=== PATIENT | male | born 1965 ===

== ENCOUNTER 2024-01-20 04:17 | Day surgery (SDC) | payer OTHER ==
[2024-01-17 12:44] VITALS: BMI 26.2
[2024-01-20] MEDS ORDERED: PROPOFOL 20 ML ONE ×2 (09:03→12:53)
[2024-01-20] MEDS ORDERED: MIDAZOLAM HCL 2 MG/2 ML SINGLE DOSE VIAL ONE (09:03)
[2024-01-20] MEDS ORDERED: VANCOMYCIN 1,000 MG VIAL (RESTRICTED TO ID ONLY) ONE ×2 (10:56→11:49)
[2024-01-20] MEDS ORDERED: GENTAMICIN SO4 80 MG/2 ML VIAL ONE ×2 (10:56→11:03)
[2024-01-20] MEDS ORDERED: ONDANSETRON 4 MG/2 ML VIAL IVPUSH PRN (10:57)
[2024-01-20] MEDS ORDERED: LACTATED RINGERS SOLUTION 1,000 ML IV SCH (11:00)
[2024-01-20] MEDS: VANCOMYCIN 1,000 MG VIAL (RESTRICTED TO ID ONLY) IVPB ONE (11:33)
[2024-01-20] MEDS ORDERED: DEXAMETHASONE SOD PHOSPHATE 4 MG/1 ML VIAL ONE (11:49)
[2024-01-20] MEDS ORDERED: ONDANSETRON 4 MG/2 ML VIAL ONE (11:49)
[2024-01-20] MEDS: GENTAMICIN 80MG PREMIX BAG IVPB ONE (11:57)
[2024-01-20] MEDS: oxyCODONE HCL 5 MG TABLET PO PRN ×2 (15:45→16:18)
[2024-01-20] MEDS ORDERED: oxyCODONE HCL 10 MG SUSTAINED ACTING TABLET ONE (15:47)
[2024-01-20] MEDS ORDERED: oxyCODONE HCL 5 MG TABLET ONE (16:19)
[2024-01-20 17:36] VITALS: RESP 20; TEMP 97.8
[2024-01-20 17:41] VITALS: BP 110/74; PULSE 90
== END 2024-01-20 17:15 | disposition home or self-care (01) ==
LOC: JASU-SURG 04:17
PROVIDERS: ATTEND Urology
PROC: 0VUS0JZ Supplement Penis with Synthetic Substitute, Open Approach (ICD-10-PCS; principal; 2024-01-20 10:00)
DX: N52.9 Male erectile dysfunction, unspecified (principal)
CPT/HCPCS: 54405; C1813; 82962; 94760